=== PATIENT | male | born 1960 ===

== ENCOUNTER 2017-03-30 02:13 | Emergency (ER) | payer BC ==
--- NOTE | 2017-03-30 03:11 | C.PDOC ---
History Of Present Illness Patient reports after having dinner, he developed some burning sensation in his neck and back. States he felt sweat for a little bit and then had shoulder discomfort, making it difficult for him to sleep. He denies any trauma, injuries , radiation of pain. Patient speaking in full sentences. No other complaints. Time Seen by Provider: 03/30/17 03:11 Chief Complaint (Nursing): Back Pain History Per: Patient History/Exam Limitations: no limitations Onset/Duration Of Symptoms: Hrs Current Symptoms Are (Timing): Still Present Quality Of Discomfort: "Pain" Pain Scale Rating Of: 3 Past Medical History Reviewed: Historical Data, Nursing Documentation, Vital Signs Vital Signs: Last Vital Signs Temp 97.7 F 03/30/17 02:21 Pulse 56 L 03/30/17 02:21 Resp 16 03/30/17 02:21 BP 146/97 H 03/30/17 02:21 Pulse Ox 100 03/30/17 03:34 - Medical History PMH: No Chronic Diseases Surgical History: No Surg Hx Family History: States: No Known Family Hx - Social History Hx Alcohol Use: Yes Hx Substance Use: No Review Of Systems Constitutional: Negative for: Fever, Chills Cardiovascular: Negative for: Chest Pain Respiratory: Negative for: Shortness of Breath Gastrointestinal: Negative for: Abdominal Pain Musculoskeletal: Positive for: Shoulder Pain, Back Pain Physical Exam - Physical Exam Appears: Non-toxic, No Acute Distress Skin: Warm, Dry Head: Normacephalic Eye(s): bilateral: Normal Inspection Oral Mucosa: Moist Throat: No Erythema Neck: Trachea Midline, Paracervical Tenderness (mild), No Step Off Deformity, Supple Chest: Symmetrical Cardiovascular: Rhythm Regular Respiratory: No Rales, No Rhonchi, No Wheezing Gastrointestinal/Abdominal: Soft, No Tenderness, No Distention Back: Normal Inspection, No CVA Tenderness, No Vertebral Tenderness, No Paraspinal Tenderness Extremity: Normal ROM Extremity: Bilateral: Atraumatic Neurological/Psych: Oriented x3, Normal Speech, Normal Cognition Gait: Steady ED Course And Treatment ECG: Interpreted By Me, Viewed By Me ECG Rhythm: Sinus Bradycardia (46), Nonspecific Changes O2 Sat by Pulse Oximetry: 100 (RA) Pulse Ox Interpretation: Normal Progress Note: pt feels much better., no more pain. wants to go home Reevaluation Time: 04:42 Reassessment Condition: Improved Disposition Counseled Patient/Family Regarding: Studies Performed, Diagnosis, Need For Followup, Rx Given - Disposition Referrals: [facility] [Outside] [facility] [Outside] Disposition: HOME/ ROUTINE Disposition Time: 03:11 Condition: FAIR Additional Instructions: please return if symptoms recur Prescriptions: Ibuprofen [Motrin Tab] 800 mg PO TID PRN #12 tab PRN Reason: Pain, Moderate (4-7) Instructions: Cervical Strain (DC), Musculoskeletal Pain (ED) Forms: [employer] (Italian) - Clinical Impression Clinical Impression: Neck strain - Scribe Statement The provider has reviewed the documentation as recorded by the Scribe (Danica Baker) Provider Attestation: All medical record entries made by the Scribe were at my direction and personally dictated by me. I have reviewed the chart and agree that the record accurately reflects my personal performance of the history, physical exam, medical decision making, and the department course for this patient. I have also personally directed, reviewed, and agree with the discharge instructions and disposition.
[2017-03-30 05:19] VITALS: BP 140/85; PULSE 62; RESP 18; TEMP 98; O2SAT 98
--- NOTE | 2017-03-31 12:03 | CARD ---
APPROVED REPORT EKG Measurement Heart [id number] <Conclusion> Sinus bradycardia Otherwise normal ECG
== END 2017-03-30 05:19 | disposition home or self-care (01) ==
LOC: C.ER 02:13
DX: S16.1XXA Strain of muscle, fascia and tendon at neck level, initial encounter (principal); X58.XXXA Exposure to other specified factors, initial encounter; Y92.89 Other specified places as the place of occurrence of the external cause